=== PATIENT | female | born 1990 | race Caucasian/White ===

== ENCOUNTER 2022-06-01 02:55 | Emergency (ER) | payer OTHER ==
[~2022-06-01] VITALS: Ht 160 cm; Wt 68.0 kg
--- NOTE | 2022-06-01 03:24 | ED Abdominal Pain ---
General Chief Complaint: Abdominal/GI Problems Stated Complaint: ABD PAIN Source of Information: Patient Exam Limitations: No Limitations History of Present Illness Date Seen by Provider: Jun 01, 2022 Time Seen by Provider: 03:07 Initial Comments Patient to the ER by private conveyance from home with chief complaint she was awoken to go to the bathroom and had some dysuria as well as left flank pain not radiating down into her groin. She is not having any hematuria. She says she had kidney stones noted incidentally on imaging from years ago but never had passed 1. She has not taken anything for the pain. It woke her about 45 minutes prior to arrival. She is having some nausea but no vomiting. She is not having any problems with her bowels moving. No abdominal surgeries or trauma. No fevers. Last menstrual cycle finished 2 to 3 days ago. Allergies and Home Medications Allergies Coded Allergies: No Known Drug Allergies (Unverified , 06/01/22) Patient Home Medication List Home Medication List Reviewed: Yes Cephalexin (Cephalexin) 500 Mg Tablet, 500 MG PO BID Prescribed by: NAVDEEP JESSICA on 06/01/22 0538 Review of Systems Review of Systems Constitutional: chills; No fever, No malaise EENTM: No Blurred Vision, No Double Vision Respiratory: Denies Cough, Denies Shortness of Air Cardiovascular: Denies Chest Pain, Denies Lightheadedness Gastrointestinal: Denies Constipated, Denies Diarrhea; Nausea, Vomiting Genitourinary: Denies Discharge, Denies Drainage Musculoskeletal: No back pain, No joint pain All Other Systems Reviewed Negative Unless Noted: Yes Past Xczhwkt-Daeyjb-Vemzhb Hx Patient Social History Tobacco Use?: No Use of E-Cig and/or Vaping dev: No Substance use?: No Alcohol Use?: Yes Alcohol Frequency: Once in a while Physical Exam Vital Signs Vital Signs - First Documented 06/01/22 03:05 Temp 36.0 Pulse 96 Resp 16 B/P (MAP) 126/92 (103) Pulse Ox 98 O2 Delivery Room Air Capillary Refill : Height/Weight/BMI Height: '" Weight: lbs. oz. kg; BMI Method: General Appearance: WD/WN, mild distress HEENT: PERRL/EOMI, pharynx normal Neck: full range of motion, normal inspection Respiratory: no respiratory distress, no accessory muscle use Cardiovascular: normal peripheral pulses, regular rate, rhythm Gastrointestinal: normal bowel sounds, soft, no organomegaly, tenderness (Left upper quadrant without McBurney's point or Rovsing sign. No mesenteric signs.) Extremities: non-tender, normal inspection, normal capillary refill Back: normal inspection, no CVA tenderness Neurologic/Psychiatric: alert, normal mood/affect, oriented x 3 Progress/Results/Core Measures Results/Orders Lab Results Laboratory Tests Test 06/01/22 03:17 06/01/22 03:32 Range/Units Urine Color YELLOW Urine Clarity SL CLOUDY Urine pH 5.5 5-9 Urine Specific Ponce 1.025 H 1.016-1.022 Urine Protein NEGATIVE NEGATIVE Urine Glucose (UA) NEGATIVE NEGATIVE Urine Ketones NEGATIVE NEGATIVE Urine Nitrite NEGATIVE NEGATIVE Urine Bilirubin NEGATIVE NEGATIVE Urine Urobilinogen 0.2 < = 1.0 MG/DL Urine Leukocyte Esterase NEGATIVE NEGATIVE Urine RBC (Auto) 3+ H NEGATIVE Urine RBC 25-50 H /HPF Urine WBC NONE /HPF Urine Squamous Epithelial Cells 0-2 /HPF Urine Crystals NONE /LPF Urine Bacteria TRACE /HPF Urine Casts NONE /LPF Urine Mucus SMALL H /LPF Urine Culture Indicated NO White Blood Count 6.2 4.3-11.0 10^3/uL Red Blood Count 4.07 3.80-5.11 10^6/uL Hemoglobin 13.1 11.5-16.0 g/dL Hematocrit 38 35-52 % Mean Corpuscular Volume 94 80-99 fL Mean Corpuscular Hemoglobin 32 25-34 pg Mean Corpuscular Hemoglobin Concent 34 32-36 g/dL Red Cell Distribution Width 11.9 10.0-14.5 % Platelet Count 225 130-400 10^3/uL Mean Platelet Volume 12.8 H 9.0-12.2 fL Immature Granulocyte % (Auto) 0 % Neutrophils (%) (Auto) 63 42-75 % Lymphocytes (%) (Auto) 28 12-44 % Monocytes (%) (Auto) 9 0-12 % Eosinophils (%) (Auto) 0 0-10 % Basophils (%) (Auto) 1 0-10 % Neutrophils # (Auto) 3.9 1.8-7.8 10^3/uL Lymphocytes # (Auto) 1.7 1.0-4.0 10^3/uL Monocytes # (Auto) 0.6 0.0-1.0 10^3/uL Eosinophils # (Auto) 0.0 0.0-0.3 10^3/uL Basophils # (Auto) 0.0 0.0-0.1 10^3/uL Immature Granulocyte # (Auto) 0.0 0.0-0.1 10^3/uL Sodium Level 142 135-145 MMOL/L Potassium Level 3.8 3.6-5.0 MMOL/L Chloride Level 105 98-107 MMOL/L Carbon Dioxide Level 24 21-32 MMOL/L Anion Gap 13 5-14 MMOL/L Blood Urea Nitrogen 14 7-18 MG/DL Creatinine 0.76 0.60-1.30 MG/DL Estimat Glomerular Filtration Rate 109 BUN/Creatinine Ratio 18 Glucose Level 107 H 70-105 MG/DL Calcium Level 9.3 8.5-10.1 MG/DL Corrected Calcium 9.0 8.5-10.1 MG/DL Total Bilirubin 0.4 0.1-1.0 MG/DL Aspartate Amino Transf (AST/SGOT) 17 5-34 U/L Alanine Aminotransferase (ALT/SGPT) 21 0-55 U/L Alkaline Phosphatase 79 40-136 U/L C-Reactive Protein High Sensitivity 0.77 H 0.00-0.50 MG/DL Total Protein 7.3 6.4-8.2 GM/DL Albumin 4.4 3.2-4.5 GM/DL My Orders Orders - NAVDEEP JESSICA Ua Culture If Indicated (06/01/22 02:58) Urine Bedside (06/01/22 02:58) Cbc With Automated Diff (06/01/22 03:17) Comprehensive Metabolic Panel (06/01/22 03:17) Hs C Reactive Protein (06/01/22 03:17) Ondansetron Injection (Zofran Injectio (06/01/22 03:30) Ketorolac Injection (Toradol Injection) (06/01/22 03:30) Ed Iv/Invasive Line Start (06/01/22 03:18) Lactated Ringers (Lr 1000 Ml Iv Solution (06/01/22 03:30) Ct Abd/Pelvis Wo(Kidney Stone) (06/01/22 03:47) Phenazopyridine Tablet (Pyridium Tablet) (06/01/22 05:45) Medications Given in ED Vital Signs/I&O 06/01/22 06/01/22 03:05 05:49 Temp 36.0 36.0 Pulse 96 89 Resp 16 16 B/P (MAP) 126/92 (103) 107/59 Pulse Ox 98 99 O2 Delivery Room Air Room Air Progress Progress Note #1: Time: 03:23 Progress Note Urinary tract infection, less likely kidney stone, less likely radiculopathy. No evidence of rash to suggest shingles. No sore throat fever or body aches to suggest mono. We will give her a liter of fluids, Toradol and 4 of Zofran to start. We will check some labs looking for markers of inflammation as well as urine to help denzel de our next step. Progress Note #2: Time: 03:47 Progress Note Hematuria prompts a CT without IV contrast looking for kidney stones. Diagnostic Imaging Diagonstic Imaging: CT Plain Films/CT/US/NM/MRI: abdomen, pelvis Comments Punctate renal stones bilaterally. No ureteral or bladder stone. No hydronephrosis. Gallbladder and appendix unremarkable. [facility], [place] NAME: NORBERTO SERRANO [facility] REC#: [id number] PT STATUS: DEP ER : 1990 PHYSICIAN: NAVDEEP JESSICA MD ADMIT DATE: 06/01/22/ER Signed Date of Exam:06/01/22 CT ABD/PELVIS WO(KIDNEY STONE) PROCEDURE: CT urinary tract, rule out kidney stone. TECHNIQUE: Multiple contiguous axial images were obtained through the abdomen and pelvis without the use of intravenous contrast. Auto Exposure Controls were utilized during the CT exam to meet ALARA standards for radiation dose reduction. INDICATION: Left flank pain and burning sensation with urination. EXAMINATION: CT abdomen and pelvis without contrast 06/01/2022. FINDINGS: Lung bases clear. Liver, gallbladder and spleen unremarkable on this noncontrast examination. Adrenal glands are unremarkable. Pancreas within normal limits. The kidneys demonstrate punctate stones on the right. There is no hydronephrosis on either side. No ureteral stones. There is no ascites. There is no free air. Appendix unremarkable. Cystic lesions in the ovaries left greater than right likely physiologic. There is no acute osseous abnormality. IMPRESSION: 1. Punctate bilateral nonobstructive renal stones. No hydronephrosis or ureteral stones appreciated. Findings agree with the preliminary report. Dictated by: Dictated on workstation # [id number] Dict: 06/01/22 0625 Trans: 06/01/22 1030 [id number] Interpreted by: LUPILLO MART MD Electronically signed by: LUPILLO MART MD 06/01/22 1030 Reviewed: Reviewed [place] Hawk Study, Reviewed by Me Departure Impression Primary Impression: Kidney stone on left side Disposition: HOME, SELF-CARE Condition: Stable Departure-Patient Inst. Decision time for Depature: 05:36 Referrals: NO,LOCAL PHYSICIAN (PCP) Primary Care Physician LUIZ ARRIAZA MD Patient Instructions: Kidney Stone, Adult ED Add. Discharge Instructions: I suspect you had a kidney stone passed before we got the CT. Your symptoms should resolve in about a day or less. Use AZO twice a day to help numb the urinary tract. Tylenol 1000 mg every 8 hours as needed for pain. Ibuprofen 800 mg every 8 hours needed for pain. Cephalexin 1 capsule twice a day for 3 to 5 days to prevent urinary tract infection. Follow-up with Dr. Arriaza, urology to discuss getting help removing your remaining kidney stones. All discharge instructions reviewed with patient and/or family. Voiced understanding. Scripts Cephalexin (Cephalexin) 500 Mg Tablet 500 MG PO BID for 5 Days, #10 TAB 0 Refills Prov: NAVDEEP JESSICA 06/01/22 Work/School Note: Work Release Form Date Seen in the Emergency Department: Jun 01, 2022 Return to Work: Jun 02, 2022 Restrictions: No Restrictions Copy Copies To 1: LUIZ ARRIAZA MD, TITUS J Jun 01, 2022 03:24
[2022-06-01 03:26] LABS: BILIRUBIN,URINE NEGATIVE (NEGATIVE); COLOR,URINE YELLOW; GLUCOSE, URINE (UA) NEGATIVE (NEGATIVE); KETONES,URINE NEGATIVE (NEGATIVE); LEUKOCYTE ESTERASE ,URINE NEGATIVE (NEGATIVE); NITRITE,URINE NEGATIVE (NEGATIVE); PH,URINE 5.5 (5-9); PROTEIN,URINE NEGATIVE (NEGATIVE)
[2022-06-01] MEDS ORDERED: KETOROLAC 30 MG/ML VIAL IVP ONE (03:30)
[2022-06-01] MEDS ORDERED: ONDANSETRON 4 MG/2 ML (SDV) Z0FRAN IVP ONE (03:30)
[2022-06-01] MEDS ORDERED: LACTATED RINGERS 1,000 ML IV ONE (03:30)
[2022-06-01 03:38] LABS: BACTERIA,URINE TRACE /HPF; CLARITY,URINE SL CLOUDY; RBC,URINE 25-50 /HPF
[2022-06-01 03:39] LABS: SQUAMOUS EPITHELIAL CELL,UR 0-2 /HPF
[2022-06-01 03:41] LABS: BASOPHILS % (AUTO) 1 % (0-10); EOSINOPHILS % (AUTO) 0 % (0-10); HEMATOCRIT 38 % (35-52); HEMOGLOBIN 13.1 g/dL (11.5-16.0); LYMPHOCYTES # (AUTO) 1.7 10^3/uL (1.0-4.0); LYMPHOCYTES % (AUTO) 28 % (12-44); MEAN CORPUSCULAR HEMOGLOBIN 32 pg (25-34); MEAN CORPUSCULAR HGB CONC 34 g/dL (32-36); MEAN CORPUSCULAR VOLUME 94 fL (80-99); MEAN PLATELET VOLUME 12.8 fL (9.0-12.2); MONOCYTES # (AUTO) 0.6 10^3/uL (0.0-1.0); MONOCYTES % (AUTO) 9 % (0-12); NEUTROPHILS # (AUTO) 3.9 10^3/uL (1.8-7.8); NEUTROPHILS % (AUTO) 63 % (42-75); PLATELET COUNT 225 10^3/uL (130-400); WHITE BLOOD COUNT 6.2 10^3/uL (4.3-11.0)
[2022-06-01 03:51] LABS: ALBUMIN 4.4 GM/DL (3.2-4.5); POTASSIUM 3.8 MMOL/L (3.6-5.0)
[2022-06-01 03:52] LABS: CALCIUM 9.3 MG/DL (8.5-10.1)
[2022-06-01 03:54] LABS: TOTAL PROTEIN 7.3 GM/DL (6.4-8.2)
[2022-06-01 03:55] LABS: BILIRUBIN,TOTAL 0.4 MG/DL (0.1-1.0)
[2022-06-01 03:57] LABS: CREATININE SERUM 0.76 MG/DL (0.60-1.30)
[2022-06-01] MEDS ORDERED: CEPH500T PO (05:38)
[2022-06-01] MEDS ORDERED: PHENAZOPYRIDINE 100 MG (PYRIDIUM) TABLET PO ONE (05:45)
[2022-06-01 05:49] VITALS: BP 107/59
--- NOTE | 2022-06-01 06:29 | Diagnostic Imaging Report ---
PROCEDURE: CT urinary tract, rule out kidney stone. TECHNIQUE: Multiple contiguous axial images were obtained through the abdomen and pelvis without the use of intravenous contrast. Auto Exposure Controls were utilized during the CT exam to meet ALARA standards for radiation dose reduction. INDICATION: Left flank pain and burning sensation with urination. EXAMINATION: CT abdomen and pelvis without contrast 06/01/2022. FINDINGS: Lung bases clear. Liver, gallbladder and spleen unremarkable on this noncontrast examination. Adrenal glands are unremarkable. Pancreas within normal limits. The kidneys demonstrate punctate stones on the right. There is no hydronephrosis on either side. No ureteral stones. There is no ascites. There is no free air. Appendix unremarkable. Cystic lesions in the ovaries left greater than right likely physiologic. There is no acute osseous abnormality. IMPRESSION: 1. Punctate bilateral nonobstructive renal stones. No hydronephrosis or ureteral stones appreciated. Findings agree with the preliminary report. Dictated by: Dictated on workstation # [id number]
== END 2022-06-01 05:53 | disposition home or self-care (01) ==
LOC: ER 03:00
DX: N20.0 Calculus of kidney (principal); Z28.310 Unvaccinated for COVID-19
CPT/HCPCS: 36415; 74176; 80053; 81000; 84703; 85025; 86141